=== PATIENT | female | born 1950 | race Caucasian/White ===

== ENCOUNTER → 2016-10-28 | Outpatient (CLI) | payer OTHER ==
--- NOTE | 2016-10-28 13:06 | US ---
Ultrasound Pelvic Complete. HISTORY: Postmenopausal female with abnormal ultrasound. Follow up. COMPARISON: 28 October 2015. TECHNIQUE: Transabdominal and transvaginal imaging was obtained of the pelvis. FINDINGS: The uterus measures 8.5 x 2.5 x 3.2 cm. There are two masses which could represent submucos al fibroids extending to the endometrial cavity or endometrial polyps. One more toward the fundus jeff sures 11 x 9 x 12 mm and one in the mid aspect measures 9 x 4 x 8 mm. Neither ovary is visualized. Th ere is limited visualization of the adnexal region secondary to bowel gas. IMPRESSION: Two stable masses which could be submucosal fibroids extending to the endometrial cavity or endometrial polyps. Neither ovary is visualized.
== END ==
LOC: BMCIMAGING 10:48
PROVIDERS: ATTEND Internal Medicine
DX: R93.8 Abnormal findings on diagnostic imaging of other specified body structures (principal); N83.201 Unspecified ovarian cyst, right side

== ENCOUNTER → 2017-04-14 | Outpatient (CLI) | payer OTHER | LOC: FIMAGING 07:42 | PROVIDERS: ATTEND Otolaryngology | DX: M89.9 Disorder of bone, unspecified (principal); R22.0 Localized swelling, mass and lump, head ==

== ENCOUNTER → 2018-01-05 | Outpatient (CLI) | payer OTHER, MEDICARE | LOC: BMCIMAGING 08:53 | PROVIDERS: ATTEND Internal Medicine | DX: Z12.31 Encounter for screening mammogram for malignant neoplasm of breast (principal) ==

== ENCOUNTER 2018-01-22 09:56 | Emergency (ER) | payer OTHER, MEDICARE ==
--- NOTE | 2018-01-22 10:30 | EDPHY ---
H & P Time Seen by Provider: 01/22/18 09:58 HPI/ROS: Chief complaint. Seizure HPI. 59-year-old female here by EMS after having a seizure. She was given Versed per EMS prior to arrival. The patient was at a grocery store and felt that her knees were buckling. Her friend was with her and witnessed her having a seizure and assisted her to the ground. Patient has never had a seizure previously. She is not injured. Did not bite her tongue. The friend said that the seizure lasted about 5 min or may be somewhat less. Then was confused afterwards. Again no previous seizure. The patient notes no recent head injury. No change in medications. She has continued to take her medications as prescribed. She has not been sick and has not had fever. ROS Constitutional. no fever/chills, no weakness Eyes. no problems with vision ENT. no sore throat, no nasal drainage Cardiovascular. no chest pain Respiratory. no shortness of breath, no cough Abdominal. no abdominal pain, no nausea/vomiting, no diarrhea . no problems urinating MS. no calf pain/swelling, no neck/back pain, no joint pain Skin. no rash Lymph. no swollen glands Neuro. Seizure Past Medical/Surgical History: Emotional trauma, cardiac arrhythmia, HNP, dental extraction Social History: Single, nonsmoker, no alcohol Smoking Status: Never smoked Physical Exam: General Appearance: Alert well-developed female mild distress vital signs are stable Eyes: Pupils equal and round no pallor or injection. ENT, Mouth: Mucous membranes are moist. No tongue bite or dental trauma Respiratory: There are no retractions, lungs are clear to auscultation. Cardiovascular: Regular rate and rhythm. Gastrointestinal: Abdomen is soft and nontender, no masses, bowel sounds normal. Neurological: Awake and alert, sensory and motor exams grossly normal. Skin: Warm and dry, no rashes. Musculoskeletal: Neck is supple nontender. Extremities symmetrical, full range of motion. Psychiatric: Patient is oriented X 3, there is no agitation. Constitutional: Initial Vital Signs Temperature (C) 36.4 C 01/22/18 10:04 Heart Rate 95 01/22/18 10:04 Respiratory Rate 16 01/22/18 10:04 Blood Pressure 145/96 H 01/22/18 10:04 O2 Sat (%) 99 01/22/18 10:04 O2 Delivery Mode Room Air O2 (L/minute) 2 Allergies/Adverse Reactions: No Known Allergies Allergy (Verified 01/26/15 09:47) Home Medications: Medication Instructions Recorded Multivitamins [Multivitamin (OTC)] 1 each PO DAILY 06/12/12 Venlafaxine Xr [Effexor Xr 75MG 225 mg PO DAILY@1800 06/12/12 (RX)] CLOZAPINE 0 mg PO 07/03/13 Glycerin [Colace] 0 each RC 07/03/13 Lipitor 10 mg (RX) 01/19/15 Medical Decision Making - Diagnostics EKG Interpretation: EKG interpreted by me shows normal sinus rhythm with normal interval and axis. QRS is normal there is no significant ST elevation or depression. There is no arrhythmia. The rate is 82 Imaging Results: Imaging Impressions Head CT 01/22/18 10:37 Impression: Nothing acute identified. No source for seizure located. Results called to Dr. González Amezcua at 11:29 AM General information for patients regarding this examination can be found at [email or web address]. If you have questions or comments about this report, please contact me at (hospital) or [phone] (cell). Noncontrast head CT reviewed by me and discussed with Dr. Ying is nonacute Procedures: IV normal saline, seizure precautions ED Course/Re-evaluation: Re-evaluation at 12:10 p.m.--patient is stable. She is conversational . She is neurologically intact. The patient and I discussed imaging and lab results. We discussed treatment plan including criteria for return and importance of follow-up and further evaluation. We discussed no driving and other dangerous activity until cleared by Neurology. She expresses understanding and agreement Differential Diagnosis: Apparent seizure. I considered hypoglycemia, electrolyte abnormalities, intracranial bleeding, CVA, medication ingestions as well as withdrawals. - Data Points Laboratory Results: Laboratory Results 01/22/18 09:56 01/22/18 09:56 01/22/18 01/22/18 09:56 09:56 WBC 6.14 10^3/uL 10^3/uL (3.80-9.50) RBC 4.65 10^6/uL 10^6/uL (4.18-5.33) Hgb 13.6 g/dL g/dL (12.6-16.3) Hct 42.8 % % (38.0-47.0) MCV 92.0 fL fL (81.5-99.8) MCH 29.2 pg pg (27.9-34.1) MCHC 31.8 g/dL L g/dL (32.4-36.7) RDW 14.0 % % (11.5-15.2) Plt Count 149 10^3/uL L 10^3/uL (150-400) MPV 12.3 fL H fL (8.7-11.7) Neut % (Auto) 73.0 % % (39.3-74.2) Lymph % (Auto) 15.8 % % (15.0-45.0) [place] % (Auto) 9.9 % % (4.5-13.0) Eos % (Auto) 0.7 % % (0.6-7.6) Baso % (Auto) 0.3 % % (0.3-1.7) Nucleat RBC Rel Count 0.0 % % (0.0-0.2) Absolute Neuts (auto) 4.48 10^3/uL 10^3/uL (1.70-6.50) Absolute Lymphs (auto) 0.97 10^3/uL L 10^3/uL (1.00-3.00) Absolute Monos (auto) 0.61 10^3/uL 10^3/uL (0.30-0.80) Absolute Eos (auto) 0.04 10^3/uL 10^3/uL (0.03-0.40) Absolute Basos (auto) 0.02 10^3/uL 10^3/uL (0.02-0.10) Absolute Nucleated RBC 0.00 10^3/uL 10^3/uL (0-0.01) Immature Gran % 0.3 % % (0.0-1.1) Immature Gran # 0.02 10^3/uL 10^3/uL (0.00-0.10) Sodium 140 mEq/L mEq/L (135-145) Potassium 4.2 mEq/L mEq/L (3.5-5.2) Chloride 96 mEq/L L mEq/L (97-110) Carbon Dioxide 24 mEq/l mEq/l (22-31) Anion Gap 20 mEq/L H mEq/L (8-16) BUN 17 mg/dL mg/dL (7-23) Creatinine 0.9 mg/dL mg/dL (0.6-1.0) Estimated GFR > 60 Glucose 94 mg/dL mg/dL (70-100) Calcium 9.2 mg/dL mg/dL (8.5-10.4) Medications Given: Discontinued Medications Sodium Chloride (Ns) 1,000 mls @ 0 mls/hr IV ONCE ONE; Wide Open PRN Reason: Protocol Stop: 01/22/18 10:38 Last Admin: 01/22/18 11:27 Dose: 1,000 mls Departure - Departure Disposition: Home, Routine, Self-Care Clinical Impression: Seizure Condition: Good Instructions: New-Onset Seizure in Adults (ED) Additional Instructions: No driving or other dangerous activity until cleared by neurologist. Return for another seizure. Regular meals. Drink plenty of fluids and stay hydrated. Regular sleep. Continue medications as prescribed. Call Neurology at [facility] for follow-up and further evaluation. Referrals: Patient,NotPresent [Unknown] - As per Instructions Madalyn Mota DO [Non Staff and Non MD] - 2-3 days, call for appt.
[2018-01-22] MEDS ORDERED: NS 1,000 ML IV ONE (10:37)
[2018-01-22 10:44] LABS: PLATELET COUNT 149 10^3/uL (150-400)
--- NOTE | 2018-01-22 11:51 | CPEKG ---
Heart Rate: 82 RR Interval: 732 P-R Interval: 212 QRSD Interval: 88 QT Interval: 376 QTC Interval: 439 P [place]: 61 QRS [place]: 66 T Wave [place]: 70 EKG Severity - BORDERLINE ECG - EKG Impression: NSR EKG Impression: VENTRICULAR PREMATURE COMPLEX EKG Impression: INTERPOLATED VENTRICULAR PREMATURE COMPLEX EKG Impression: LOW VOLTAGE IN FRONTAL LEADS Electronically Signed By: González Amezcua 22-Jan-2018 13:45:55
[2018-01-22 12:34] VITALS: BP 148/67
== END 2018-01-22 12:33 | disposition home or self-care (01) ==
LOC: EDUNIT#
DX: R56.9 Unspecified convulsions (principal); E86.9 Volume depletion, unspecified

== ENCOUNTER → 2018-02-06 | Outpatient (CLI) | payer OTHER, MEDICARE ==
[~2018-02-06] MED LIST: GADOBUTROL 10 ML VIAL IVP ONE
== END ==
LOC: FIMAGING 09:50
PROVIDERS: ATTEND Internal Medicine
DX: R56.9 Unspecified convulsions (principal)
CPT/HCPCS: 70553; A9585

== ENCOUNTER → 2018-03-02 | Outpatient (CLI) | payer OTHER, MEDICARE ==
--- NOTE | 2018-03-09 15:28 | CPEEG ---
[f rep st] ELECTROENCEPHALOGRAM DATE OF STUDY: INTERPRETATION: This EEG is abnormal due to the presence of potentially epileptogenic abnormalities. These findings would be consistent with a seizure disorder. I left a message with the ordering provider, Dr. Malka Leal, regarding these findings and requested that the findings be sent to the physician on-call for [facility]. REPORT: This EEG contains 8 Hz alpha activity to the posterior head regions. The primary feature of this study was the presence of multifocal spikes and sharp waves. In addition, there appeared to be more generalized spike and wave discharges as well. Therefore, this study may represent a multifocal seizure disorder versus a generalized seizure disorder with some fragmentary discharges in addition to the generalized spike and wave discharges. There was additional activation with photic stimulation (photoparoxysmal response). There was continued activation during hyperventilation. The patient became drowsy and fell asleep during the study. During drowsiness, sleep, the patient continued to have both generalized and multifocal spike and wave discharges. No clinical events were recorded. I left a message with the ordering provider, Dr. Malka Leal, regarding these findings and requested that the findings be sent to the physician on-call for [facility]. /[id number]/MODL MTDD
== END ==
LOC: FCPNEURO 07:41
PROVIDERS: ATTEND Psychiatry & Neurology Neurology
DX: R94.01 Abnormal electroencephalogram [EEG] (principal)